=== PATIENT | female | born 1990 | race American Indian/Alaskan Native ===

== ENCOUNTER 2019-10-04 23:25 | Emergency (ER) | payer OTHER ==
[~2019-10-04] VITALS: Ht 162.6 cm; Wt 81.6 kg
[2019-10-04] MEDS ORDERED: EPINEPHrine HCL 1 MG/1 ML AMP SC ONE (23:45)
[2019-10-04] MEDS ORDERED: diphenhdrAMINE HCL 50 MG/1 ML VL IV ONE (23:45)
[2019-10-04] MEDS ORDERED: ALBUTEROL SULF 2.5 MG/0.5ML(0.5%) NEB SOLN NEB ONE (23:45)
[2019-10-04] MEDS ORDERED: FAMOTIDINE (10MG/ML) 2ML VL IV ONE (23:45)
[2019-10-04] MEDS ORDERED: methylPREDNISolone SOD SUCC 125 MG/2 ML VL IV ONE (23:45)
[2019-10-05 04:00] VITALS: BP 109/65
== END 2019-10-05 04:42 | disposition home or self-care (01) ==
LOC: ER 23:25
DX: T78.40XA Allergy, unspecified, initial encounter (principal); T78.3XXA Angioneurotic edema, initial encounter; X58.XXXA Exposure to other specified factors, initial encounter
CPT/HCPCS: 94640; 96372; 96374; 96375; 99283; J0171; J1200; J2930; J3490; J7611